=== PATIENT | female | born 1965 | race Caucasian/White ===

== ENCOUNTER 2022-07-02 09:27 | Day surgery (SDC) | payer OTHER ==
[~2022-07-02] VITALS: Ht 160 cm; Wt 75.3 kg
[2022-07-02] MEDS ORDERED: LIDOCAINE 2% 100 MG/5 ML UJET TP ONE (11:01)
[2022-07-02] MEDS ORDERED: fentaNYL citrate 0.05 MG/ML VIAL ONE (11:01)
[2022-07-02] MEDS ORDERED: fentaNYL citrate 0.05 MG/ML VIAL IVP ONE (12:50)
== END 2022-07-02 12:45 | disposition home or self-care (01) ==
LOC: MDS 09:27 → MMU 09:28 → MDS 12:45
PROVIDERS: ATTEND Internal Medicine Gastroenterology
DX: Z12.11 Encounter for screening for malignant neoplasm of colon (principal); K63.5 Polyp of colon; K57.30 Diverticulosis of large intestine without perforation or abscess without bleeding; F17.210 Nicotine dependence, cigarettes, uncomplicated; E78.5 Hyperlipidemia, unspecified; Z88.6 Allergy status to analgesic agent
CPT/HCPCS: 45385; J3010